=== PATIENT | female | born 1965 | race Two or more races ===

== ENCOUNTER 2024-09-11 06:38 | Day surgery (SDC) | payer BC ==
[~2024-09-11 06:38] MED LIST: Sodium Chloride 0.9% 10 ML Syringe FLUSH PRN; Sodium Chloride 0.9% 2.5 ML Syringe FLUSH PRN; Sodium Chloride 0.9% 20 ML SDV IV PRN; ceFAZolin 2 GM in Sodium Chloride 0.9% 50 ML IV ONE
[2024-09-11] MEDS: Lactated Ringers 1,000 ML IV SCH (07:05)
[2024-09-11] MEDS ORDERED: Bupivacaine 0.5% 30 ML SDV ONE (07:22)
[2024-09-11] MEDS ORDERED: Famotidine 20 MG/2 ML SDV ONE (07:36)
[2024-09-11] MEDS ORDERED: Ropivacaine 0.5% 5 MG/ML 30 ML SDV ONE (07:36)
[2024-09-11] MEDS ORDERED: Propofol 200 MG/20 ML SDV ONE ×2 (07:37→08:54)
[2024-09-11] MEDS ORDERED: propofoL 50 ML ONE (07:37)
[2024-09-11] MEDS ORDERED: Morphine 10 MG/ML SDV ONE (07:38)
[2024-09-11] MEDS ORDERED: Ketamine HCL/NACL, ISO-OSM 50 MG/5 ML Syringe ONE (07:38)
[2024-09-11] MEDS ORDERED: fentaNYL 250 MCG/5 ML SDV ONE (07:38)
[2024-09-11] MEDS ORDERED: HYDROmorphone 1 MG/ML Syringe IVPUSH PRN (07:41)
[2024-09-11] MEDS ORDERED: Metoclopramide 10 MG/2 ML SDV IVPUSH PRN (07:41)
[2024-09-11] MEDS ORDERED: fentaNYL 50 MCG/ML SDV IVPUSH PRN (07:41)
[2024-09-11] MEDS ORDERED: Albuterol 0.083% 2.5 MG/3 ML Neb Soln NEB PRN (07:41)
[2024-09-11] MEDS ORDERED: Ondansetron 4 MG/2 ML SDV IVPUSH PRN (07:41)
[2024-09-11] MEDS ORDERED: dexmedeTOMIDine HCl 200 MCG/2 ML SDV ONE (07:41)
[2024-09-11] MEDS ORDERED: Naloxone 0.4 MG/ML SDV IVPUSH PRN (07:41)
[2024-09-11] MEDS ORDERED: Phenylephrine HCl In 0.9% NaCl 1 MG/10 ML Syringe IVPUSH PRN (07:41)
[2024-09-11] MEDS ORDERED: Morphine 2 MG/ML SYRINGE IVPUSH PRN (07:41)
[2024-09-11] MEDS ORDERED: Water For Injection, Sterile 40 ML ONE (07:42)
[2024-09-11] MEDS ORDERED: Lidocaine 2% 11 ML Jelly Filled Syringe ONE (07:47)
[2024-09-11] MEDS ORDERED: Cisatracurium Besylate 10 MG/5 ML SDV ONE (07:49)
[2024-09-11] MEDS ORDERED: Dexamethasone 4 MG/ML 5 ML MDV ONE (08:50)
[2024-09-11] MEDS ORDERED: Ondansetron 4 MG/2 ML SDV ONE (08:50)
[2024-09-11] MEDS ORDERED: Phenylephrine HCl In 0.9% NaCl 1 MG/10 ML Syringe ONE (08:50)
[2024-09-11] MEDS ORDERED: ePHEDrine 50 MG/ML SDV ONE (08:59)
[2024-09-11] MEDS ORDERED: Glycopyrrolate 0.2 MG/ML SDV ONE (10:02)
[2024-09-11] MEDS ORDERED: Neostigmine Methylsulfate 10 MG/10 ML MDV ONE (10:02)
[2024-09-11] MEDS ORDERED: Ketorolac 30 MG/ML SDV ONE (10:02)
== END 2024-09-11 11:12 | disposition home or self-care (01) ==
LOC: MW.SDS 06:38
PROVIDERS: ATTEND Surgery
DX: K80.10 Calculus of gallbladder with chronic cholecystitis without obstruction (principal); I12.9 Hypertensive chronic kidney disease with stage 1 through stage 4 chronic kidney disease, or unspecified chronic kidney disease; N18.9 Chronic kidney disease, unspecified; K21.9 Gastro-esophageal reflux disease without esophagitis; E78.00 Pure hypercholesterolemia, unspecified; E06.3 Autoimmune thyroiditis; Z79.890 Hormone replacement therapy; Z79.899 Other long term (current) drug therapy
CPT/HCPCS: 47562; 64488; A9270; J0131; J0665; J0690; J1100; J1596; J1885; J2270; J2371; J2405; J2704; J2710; J2795; J3010; J3490; J7120; 00790; J2272